=== PATIENT | male | born 1950 | race Caucasian/White ===

== ENCOUNTER → 2016-11-15 | Outpatient (CLI) | payer MEDICARE, OTHER ==
--- NOTE | 2016-11-16 07:55 | MRI ---
EXAM DESCRIPTION: Lumbar Spine w/o Contrast CLINICAL HISTORY: PAIN COMPARISON: None Available. TECHNIQUE: MRI of the lumbar spine is performed according to our usual protocol with axial and sagittal multi sequence imaging. FINDINGS: MRI lumbar spine demonstrates tiny amount of curvature of the spine with diffuse disc desiccation and significant disc space narrowing at L4-5 and L5-S1. The retroperitoneum is unremarkable with a small amount of perinephric fluid surrounding each kidney as well as a probable cyst involving the lower pole of the left kidney medially. Image quality is significantly degraded by motion artifact on essentially all imaging sequences. Edema on either side of the endplates anteriorly at L5-S1 is noted. There is significant stenosis beginning at L2-3 and extending through L5-S1 level. L1-2: the disc is well hydrated. There is no loss of height. There is no bulging. The facets are unremarkable with no significant hypertrophy. There is no stenosis or impingement. L2-3: Multifactorial moderately severe central stenosis with the right greater than left facet arthropathy and broad-based annular bulge that is asymmetrically prominent on the right consistent with an additional right-sided disc protrusion. Significant neural compression and foraminal stenosis is suspected. L3-4: Severe multifactorial Central stenosis with broad-based annular bulge with additional central and left parasagittal disc protrusion and bilateral facet arthropathy with marked thecal sac compression and neural compression with a small extruded disc fragment lying just inferior to the disc space. L4-5: Severe disc degeneration and disc space narrowing with facet arthropathy left greater than right and lower limits of normal thecal sac with asymmetric prominence of the disc bulge in the midline into the left of midline with a moderate left neural compression. Left greater than right foraminal stenosis. L5-S1: Severe disc degeneration and narrowing with broad-based annular bulge that is asymmetrically prominent to the left with borderline central canal stenosis and left greater than right facet arthropathy with neural compression. Severe left and moderate right foraminal stenosis. IMPRESSION: 1. Suboptimal examination limited by motion artifact with advanced mid and lower lumbar degenerative disc changes and moderately severe L2-3 and severe L3-4 central stenosis with borderline changes at L4-5 and L5-S1. 2. Asymmetric left-sided broad-based disc bulges at L4-5 and L5-S1 with severe foraminal stenoses on the left at these two levels. 3. Central and left-sided disc protrusion L3-4 with a small extruded fragment extending inferiorly with marked thecal sac and neural compression to the left of midline 4. At L2-3 broad-based disc bulge that is slightly prominent to the right with right greater than left thecal sac and foraminal narrowing. Electronically signed by: Robbie Barahona MD 11/16/2016 7:55 AM CDT
== END | disposition home or self-care (01) ==
LOC: MRI 13:50
PROVIDERS: ATTEND Nurse Practitioner Family
DX: M54.16 Radiculopathy, lumbar region (principal)

== ENCOUNTER → 2016-12-07 | Outpatient (CLI) | payer MEDICARE, OTHER | END | disposition home or self-care (01) | LOC: GMAJ 10:57 | PROVIDERS: ATTEND Family Medicine | DX: Z12.5 Encounter for screening for malignant neoplasm of prostate (principal) ==

== ENCOUNTER → 2017-11-16 | Outpatient (CLI) | payer MEDICARE, OTHER | LOC: GMAJ 11:06 | PROVIDERS: ATTEND Family Medicine | DX: M10.9 Gout, unspecified (principal) ==

== ENCOUNTER → 2018-05-21 | Outpatient (CLI) | payer MEDICARE, OTHER | LOC: GMAJ 12:02 | PROVIDERS: ATTEND Family Medicine | DX: Z12.5 Encounter for screening for malignant neoplasm of prostate (principal); M10.9 Gout, unspecified | CPT/HCPCS: 84550; G0103 ==

== ENCOUNTER → 2019-09-19 | Outpatient (CLI) | payer MEDICARE, OTHER | LOC: GMAJ 11:21 | PROVIDERS: ATTEND Family Medicine | DX: M10.9 Gout, unspecified (principal); Z12.5 Encounter for screening for malignant neoplasm of prostate; I10 Essential (primary) hypertension; E11.9 Type 2 diabetes mellitus without complications | CPT/HCPCS: 84550; G0103 ==

== ENCOUNTER → 2020-02-03 | Outpatient (CLI) | payer MEDICARE, OTHER | LOC: GMAJ 10:58 | PROVIDERS: ATTEND Family Medicine | DX: M10.00 Idiopathic gout, unspecified site (principal); E11.9 Type 2 diabetes mellitus without complications; E78.2 Mixed hyperlipidemia; I10 Essential (primary) hypertension ==

== ENCOUNTER 2020-03-12 05:45 | Day surgery (SDC) | payer MEDICARE, OTHER ==
[2020-03-12] MEDS ORDERED: PROPOFOL 200 MG/20 ML VIAL IV ONE (05:46)
[2020-03-12] MEDS ORDERED: LIDOCAINE 1% 10 ML VIAL INJ ONE (05:46)
[2020-03-12] MEDS ORDERED: LACTATED RINGERS 1,000 ML ONE (06:31)
[2020-03-12 08:11] VITALS: O2SAT 95
[2020-03-12 08:53] VITALS: TEMP 97.7
--- NOTE | 2020-03-12 09:19 | OP ---
DATE OF PROCEDURE: 03/12/20 PREOPERATIVE DIAGNOSIS: 1. Screening colonoscopy. POSTOPERATIVE DIAGNOSIS: 1. Normal colon with diverticulosis. PROCEDURE: 1. Colonoscopy. SURGEON: Jaron Armendariz MD COMPLICATIONS: None. ESTIMATED BLOOD LOSS: None. PLAN: Discharge. INDICATION: Screening colonoscopy. PROCEDURE: The patient was brought to the Endoscopy Suite. General anesthesia was induced in the lateral position. Digital rectal exam was normal. The colonoscope was then passed with no difficulty to the cecum as identified by the appendiceal orifice and ileocecal valve. Upon withdrawal, there were a couple of diverticula on the right side. Mucosal surfaces were otherwise normal. No polyps were identified and a couple of tics on the left side. Further withdrawal was still normal. It was a good exam with good prep. He had some hemorrhoids, non-thrombosed. The patient tolerated the procedure and was taken to Recovery to be discharged. Followup scope in 10 years. #[id number] cc: Jaron Lei MD [facility]
[2020-03-12 09:27] VITALS: BP 131/76
== END 2020-03-12 09:10 | disposition home or self-care (01) ==
LOC: AMB 05:45
PROVIDERS: ATTEND Surgery
DX: Z12.11 Encounter for screening for malignant neoplasm of colon (principal); K57.90 Diverticulosis of intestine, part unspecified, without perforation or abscess without bleeding; K64.9 Unspecified hemorrhoids; E11.9 Type 2 diabetes mellitus without complications; I10 Essential (primary) hypertension; Z88.0 Allergy status to penicillin; M19.90 Unspecified osteoarthritis, unspecified site; J45.909 Unspecified asthma, uncomplicated; M10.9 Gout, unspecified; E78.00 Pure hypercholesterolemia, unspecified; R91.1 Solitary pulmonary nodule; Z87.19 Personal history of other diseases of the digestive system; Z87.891 Personal history of nicotine dependence; Z79.84 Long term (current) use of oral hypoglycemic drugs; Z79.899 Other long term (current) drug therapy
CPT/HCPCS: 00812; 36416; 82948; G0121; J3490; J7120